=== PATIENT | male | born 1990 | race Caucasian/White ===

== ENCOUNTER 2022-02-02 07:40 | Emergency (ER) | payer BC, MEDICAID, SELFPAY ==
[2022-02-02 07:59] VITALS: BP 132/73; PULSE 72; RESP 16; TEMP 36.7; O2SAT 99; BMI 31.4
--- NOTE | 2022-02-02 08:37 | ED_ITS ---
HPI - URI/Sore Throat General Chief Complaint: Upper Respiratory Symptoms Stated Complaint: fluid in both ears, headaches Time Seen by Provider: 02/02/22 08:07 Source: patient Mode of arrival: ambulatory History of Present Illness HPI Narrative: 31-year-old male presenting to the ED complaining of bilateral ear congestion/fluid in ears, and rhinorrhea since last week s/p URI symptoms. Denies drainage from ears, fever, chills, sore throat, cough, sick contacts, recent travel MD elicited complaint: rhinorrhea and nasal congestion Onset (ago): day(s) Related Data Previous Rx's Medication Instructions Recorded amoxicillin 875 mg-potassium 1 tab PO BID 7 Days #14 tab 02/02/22 clavulanate 125 mg tablet fluticasone propionate 50 2 spray INTRANASAL DAILY #16 g 02/02/22 mcg/actuation nasal spray,suspension (Flonase Allergy Relief) Allergies Allergy/AdvReac Type Severity Reaction Status Date / Time No Known Allergies Allergy Verified 02/02/22 08:02 Review of Systems Review of Systems: Constitutional: No Fever, No Chills ENT/Mouth: + Ear Pain, + Nasal Congestion, No Sinus Pain, No Hoarseness, No sore throat, + Rhinorrhea, No Swallowing Difficulty Cardiovascular: No Chest Pain, No SOB Respiratory: No Cough, No Sputum, No Wheezing Gastrointestinal: No Nausea, No Vomiting, No Diarrhea, No Constipation, No Abdominal pain Genitourinary:, No Dysuria, No Urinary Frequency, No Flank Pain Musculoskeletal: No joint pain, No Myalgias Skin: No Skin Lesions, No rash Neuro: No Weakness, No Numbness Yes all other systems are reviewed and are negative [facility] Past Medical History Attestation statement: The following information was validated with the patient. Medical History Eczema Liver problem Sciatic leg pain Social History Social History Advance Directives: No Advance Directives Information Provided: Yes Physical Exam Vital Signs: Vital Signs: Last Vital Signs Temp 98.1 F 02/02/22 07:59 Pulse 72 02/02/22 07:59 Resp 16 02/02/22 07:59 BP 132/73 02/02/22 07:59 Pulse Ox 99 02/02/22 07:59 BMI result Body Mass Index 31.4 Const: General: cooperative, healthy appearing and no acute distress Orientation/consciousness: patient oriented x3 Limitations: no limitations HEENT: Head: Yes normal to inspection Ears: hearing grossly normal bilaterally, external ears normal, mastoids normal and TM abnormal dull bilateral, wth effusion and with fluid behind the TM on the right General nose exam: Normal external nose present and Nasal discharge present Face and sinus: Yes normal facial exam Mouth: Normal oral and palatal mucosa present Throat: Yes posterior oropharynx normal, Yes tonsils normal, Yes uvula midline, No peritonsillar mass and No uvular edema Eyes: General: appearance normal, both eyes and all related structures EOM: EOMs intact bilaterally Neck: Neck: Yes normal visual inspection and Yes no meningeal signs Resp: Effort & Inspection: normal respiratory effort and no respiratory distress Auscultation: not clear to auscultation bilaterally, no rales, no rhonchi and no wheezes Cardio: Rate: regular rate Heart sounds: S1 normal heart sound present and S2 normal heart sound present Skin: Rashes: no rashes Wounds: no wounds Neuro: General: patient oriented x3 and no meningeal signs Gait exam (Neuro): Normal gait present Extrem: General: Yes normal to inspection and Yes no pedal edema MDM - URI/Sore Throat MDM Narrative Medical decision making narrative: 31-year-old male presenting to the ED complaining of bilateral ear congestion/fluid in ears, and rhinorrhea since last week s/p URI symptoms. On exam vital signs stable, NAD/nontoxic, physical exam consistent with otitis media. Concern for URI. Unlikely pneumonia/strep pharyngitis Will treat with Augmentin Differential Diagnosis Differential diagnosis: Likely upper respiratory infection, otitis media, sinusitis, viral infection and pharyngitis Medical Records Attestation: I reviewed the patient's medical records. Lab Data Attestation: I reviewed the patient's lab results. Discharge Plan Discharge Clinical Impression: Otitis media Patient Disposition: Home, Self-Care Instructions: Ear Infection (ED) Additional Instructions: You have an inner ear infection. Augmentin as an antibiotic please take as prescribed Flonase as a nasal decongestion, use as needed Please follow-up with her doctor Take Tylenol and Motrin Rest Stay hydrated Prescriptions: New fluticasone propionate [Flonase Allergy Relief] 50 mcg/actuation spray,suspension 2 spray intranasal DAILY Qty: 16 0RF Rx Instructions: administer into each nostril amoxicillin-pot clavulanate 875-125 mg tablet 1 tab PO BID 7 Days Qty: 14 0RF Referrals: Physician,Unknown J [Primary Care Provider] -
== END 2022-02-02 09:05 | disposition home or self-care (01) ==
PROVIDERS: Emergency Provider Emergency Medicine
DX: H66.93 Otitis media, unspecified, bilateral (principal); H92.03 Otalgia, bilateral; Z79.899 Other long term (current) drug therapy
CPT/HCPCS: 99283